=== PATIENT | female | born 1970 | race Caucasian/White ===

== ENCOUNTER 2018-04-28 21:12 | Emergency (ER) | payer OTHER ==
[2018-04-28] MEDS ORDERED: IBUPROFEN 600 MG TAB PO ONE ×2 (22:13→22:14)
--- NOTE | 2018-04-28 22:14 | EDPHY ---
General Time Seen by Provider: 04/28/18 21:57 Narrative: CHIEF COMPLAINT: Finger injury HISTORY OF PRESENT ILLNESS: Patient presents with complaints of finger injury. This involves her left pinky finger. She was playing with a "weighted rugby ball" just prior to arrival. She says she caught awkwardly, injuring the left finger. It is painful. She cannot bend or straighten it. No numbness or tingling. No weakness. No pain in the ipsilateral hand, wrist, elbow. No injury to the head or neck. She has minimal pain at rest. No other associated complaints or modifying factors. DOMINANT EXTREMITY: Right-hand dominant ESTABLISHED ORTHOPEDIST: None REVIEW OF SYSTEMS: Ten systems reviewed and are negative unless otherwise noted in the HPI PAST MEDICAL HISTORY: Uncomplicated PAST SURGICAL HISTORY: No recent surgeries SOCIAL HISTORY: Nonsmoker. Lives here independently. FAMILY HISTORY: Noncontributory EXAMINATION General Appearance: Alert, no distress Cardiovascular: Symmetric radial pulses 2+. There is brisk cap refill on the fingers of the left hand. Neurological: A&O, sensory symmetric in the hands, interossei strength symmetric Skin: Warm and dry, no rash. No petechiae. No purpura. No puncture laceration Extremities: There is tenderness and deformity to the left pinky finger. Unable to test range of motion due to deformity and suspected subluxation or dislocation. The remainder of the left hand, wrist informed unremarkable with soft compartments. Psychiatric: Mood and affect normal DIFFERENTIAL DIAGNOSES: Including but not limited to sprain, strain, fracture, dislocation, subluxation MDM: 10:00 p.m. Dislocation of the left pinky finger DIP and PIP joints without puncture or obvious fracture or initial x-ray. I have administered a digital block at her request. I will reduce the fingers. 10:15 p.m. Successful reduction of the PIP and the IP joints of the left little finger. X- ray is pending. She will be placed in Alum[place]oam splint. 10:30 p.m. Post reduction film does reveal small avulsion fractures of the base of the proximal middle phalanx. These are inconsequential do not change the plan of splint, ice, elevation anti-inflammatories. The patient is declining any narcotic pain medication. I provided short course of this in case she change her mind with block wears off. I have also provided the on-call hand surgeon for definitive care. Nonweightbearing to the finger until seen by them. ER precautions for numbness, tingling, weakness, cyanosis or pallor. She is comfortable this plan discharged home stable condition PROCEDURE: Closed reduction of left pinky finger, PIP joint Consent: Verbal Location: Left 5th finger PIP Anesthesia: Digital block Procedure: After time-out the area surrounding the PIP was applied and traction counter traction. I was able to anteriorly reduce the middle phalanx without difficulty. There is good anatomic alignment. Good range of motion postprocedure. Brisk cap refill postprocedure. Complications: None Post-reduction film: Successful reduction with superficial chip laceration/ avulsion PROCEDURE: Closed reduction of left pinky finger, DIP joint Consent: Verbal Location: Left 5th finger PIP joint Anesthesia: Digital block Procedure:After time-out the area surrounding the PIP was applied and traction counter traction. I was able to anteriorly reduce the distal phalanx without difficulty. There is good anatomic alignment. Good range of motion postprocedure. Brisk cap refill postprocedure. Complications: None Post-reduction film: Successful reduction with superficial chip laceration/ avulsion SUPERVISION: This patient was independently evaluated without direct involvement of or examination by the attending physician. ED Precautions: Worsening pain. Erythema, edema, cyanosis, pallor, paresthesia or anesthesia. - Diagnostics Imaging Results: Imaging Impressions Finger X-Ray 04/28/18 21:50 Impression: Dorsal dislocations of the proximal and distal interphalangeal joints of the 5th finger. Finger X-Ray 04/28/18 22:15 Impression: 1. Avulsion fractures of the bases of the distal and middle phalanges. 2. Interval reduction of dislocations. - History Smoking Status: Never smoked - Objective Vital Signs: Initial Vital Signs Temperature (C) 98.2 F 04/28/18 21:15 Heart Rate 59 L 04/28/18 21:15 Respiratory Rate 16 04/28/18 21:15 Blood Pressure 82/45 L 04/28/18 21:15 O2 Sat (%) 99 04/28/18 21:15 O2 Delivery Mode Room Air Allergies/Adverse Reactions: No Known Allergies Allergy (Unverified 04/28/18 21:18) Home Medications: Medication Instructions Recorded Wellbutrin 100mg (*) 04/28/18 Medications Given: Discontinued Medications Ibuprofen (Motrin) 600 mg PO EDNOW ONE Stop: 04/28/18 22:15 Last Admin: 04/28/18 22:15 Dose: 600 mg Oxycodone/Acetaminophen (Percocet 5/325mg Prepack#4) 1 btl TAKEHOME EDNOW ONE Stop: 04/28/18 22:43 Last Admin: 04/28/18 22:56 Dose: 1 btl Departure - Departure Disposition: Home, Routine, Self-Care Clinical Impression: Dislocation of distal interphalangeal (DIP) joint of left little finger Qualifiers: Encounter type: initial encounter Qualified Code(s): S63.297A - Dislocation of distal interphalangeal joint of left little finger, initial encounter Dislocation of proximal interphalangeal joint of left little finger Qualifiers: Encounter type: initial encounter Qualified Code(s): S63.287A - Dislocation of proximal interphalangeal joint of left little finger, initial encounter Avulsion fracture of distal phalanx of finger Qualifiers: Encounter type: initial encounter Fracture type: closed Qualified Code(s): S62.639A - Displaced fracture of distal phalanx of unspecified finger, initial encounter for closed fracture Avulsion fracture of proximal phalanx of finger Qualifiers: Encounter type: initial encounter Fracture type: closed Qualified Code(s): S62.619A - Displaced fracture of proximal phalanx of unspecified finger, initial encounter for closed fracture Condition: Good Instructions: Oxycodone/Acetaminophen (By mouth), Finger Fracture (ED), Finger Dislocation (ED) Additional Instructions: 1. Ice and elevate often for the next 48 hr 2. Ibuprofen 400 mg every 6-8 hours as needed for pain 3. Contact hand surgeon on Monday for definitive care 4. Keep your finger splint in place at all times until seen by hand surgeon Referrals: Ronald Tang MD [Medical Doctor] - As per Instructions
[2018-04-28] MEDS ORDERED: OXYCODONE/APAP 5/325MG PREPACK#4 BTL TAKEHOME ONE (22:42)
[2018-04-28 23:13] VITALS: BP 98/64
== END 2018-04-28 23:11 | disposition home or self-care (01) ==
PROC: 0RSXXZZ Reposition Left Finger Phalangeal Joint, External Approach (ICD-10-PCS; principal; 2018-04-28)
DX: S63.297A Dislocation of distal interphalangeal joint of left little finger, initial encounter (principal); S63.287A Dislocation of proximal interphalangeal joint of left little finger, initial encounter; S62.639A Displaced fracture of distal phalanx of unspecified finger, initial encounter for closed fracture; S62.619A Displaced fracture of proximal phalanx of unspecified finger, initial encounter for closed fracture; X58.XXXA Exposure to other specified factors, initial encounter; Y99.8 Other external cause status; Y93.63 Activity, rugby